=== PATIENT | male | born 1970 | race Caucasian/White ===

== ENCOUNTER 2017-01-19 11:23 | Emergency (ER) | payer OTHER ==
[~2017-01-19] VITALS: Ht 162.6 cm; Wt 71.6 kg
[2017-01-19 11:25] VITALS: O2SAT 95
[2017-01-19 11:29] VITALS: TEMP 37; Ht 162.6 cm; Wt 71.6 kg
[2017-01-19] MEDS ORDERED: ZNTT/150 PO (11:32)
[2017-01-19 12:08] LABS: BASO % 0.1 %; BASO ABS # 0.01 K/uL (0-0.2); COMPLETE YES; EOS % 0.6 %; HEMATOCRIT 45.9 % (42-52); IG% 0.1 %; LYMPH ABS # 1.26 K/uL (1.2-3.4); MEAN CELL VOLUME 91.3 fL (80-100); MEAN CORPUSCULAR HGB CONC 35.1 g/dl (32-36); MEAN PLATELET VOLUME 11.6 fL (7.4-10.4); NEUT % 77.2 %; PLATELET COUNT 202 K/uL (130-400); RED BLOOD COUNT 5.03 M/uL (4.7-6.1)
--- NOTE | 2017-01-19 12:21 | DIAGNOSTIC IMAGING REPORT ---
CHEST ONE VIEW PORTABLE CLINICAL HISTORY: Atypical chest pain COMPARISON STUDY: No previous studies for comparison. FINDINGS: The cardiac and mediastinal contours are normal. There is no evidence of focal pulmonary consolidation. There is no evidence of failure. No pleural effusions are visualized.[ IMPRESSION: No active disease in the chest. Electronically signed by: Reji Calero M.D. 01/19/2017 12:20 PM Dictated Date/Time: 01/19/2017 12:20 PM
[2017-01-19 12:27] LABS: BUN/CREATININE RATIO 17.8 (10-20); CALCIUM 8.7 mg/dl (8.5-10.1); CREATININE 0.75 mg/dl (0.60-1.40); POTASSIUM 4.3 mmol/L (3.5-5.1)
[2017-01-19 13:10] LABS: BENZODIAZEPINE, URINE NEG (NEG); COCAINE,URINE NEG (NEG); PHENCYCLIDINE, URINE NEG (NEG)
--- NOTE | 2017-01-19 13:38 | EMERGENCY ROOM VISIT NOTE ---
History First contact with patient: 11:29 Chief Complaint: CHEST PAIN Stated Complaint: CHEST PAIN Nursing Triage Summary: Pt presents via ALS litter for eval of substernal cp when taking a deep breath, pain started at 0500. Pt states went to the [facility] at the [facility] at 0930. States he is starting to feel better on arrival to the ED. Pt states last night approx 2130 he snorted a "line of white substance." Pt reports hx of heroin use. History of Present Illness The patient is a 46 year old male who presents to the Emergency Room from [facility] with complaints of chest pain that started this morning at 5 AM. Patient describes the pain as midsternal, dull and achy, constant, currently 4/10. Associated symptoms of shortness of breath, sweating, dizziness at onset of pain. He states these symptoms have resolved and his pain is improving since onset. Patient states that last night around 9:30 PM he snorted a "line of white powder." He reports a history of paranoid use and states this tasted similar to heroin, but he did not know what was in the powder. Patient denies any past medical history or family history of heart disease. Denies headache, vision changes, neck pain, back pain, leg pain or swelling, edema, syncope, abdominal pain, nausea/vomiting, diarrhea, constipation, urinary complaints. Review of Systems GENERAL: Denies fevers, chills, malaise, fatigue, unintentional weight changes. HEENT: + Dizziness. Denies visual problems, hearing loss, tinnitus. Denies difficulty swallowing or oral lesions. PULMONARY: + Shortness of breath. Denies cough, sputum production or hemoptysis. CARDIOVASCULAR: + Chest pain. Denies palpitations, syncope, dyspnea on exertion , orthopnea or peripheral edema. GASTROINTESTINAL: Denies diarrhea, constipation, nausea, vomiting, or abdominal pain. GENITOURINARY: Denies dysuria, frequency, urgency or nocturia. NEUROLOGIC: Denies history of epilepsy, CVA, TIA or chronic headaches. MUSCULOSKELETAL: Denies history of joint tenderness/swelling. SKIN: Denies rashes or lesions. PSYCHIATRIC: Denies history of depression or mental illness. ENDOCRINE: Denies history of diabetes, thyroid disorders, abnormal hair growth or sexual dysfunction. Social History Smoking Status: Current Every Day Smoker Current/Historical Medications Scheduled Ranitidine (Zantac), 150 MG PO BID Allergies Coded Allergies: No Known Allergies (Unverified , 01/19/17) Physical Exam Vital Signs Date Time Temp Pulse Resp B/P Pulse Ox O2 Delivery O2 Flow Rate FiO2 01/19/17 15:57 64 16 109/76 97 Room Air 01/19/17 15:03 70 16 103/71 97 Room Air 01/19/17 13:46 72 18 112/65 97 Room Air 01/19/17 13:19 71 01/19/17 12:55 80 18 106/66 97 Room Air 01/19/17 11:32 75 01/19/17 11:29 37.0 83 18 122/79 98 Room Air 01/19/17 11:25 95 Room Air Physical Exam CONSTITUTIONAL: No acute distress. Well appearing and well nourished. Alert and oriented X 4 with normal affect. HEENT: Normocephalic, atraumatic. Pupils equal, round and reactive to light, EOMI. TMs normal. Pharynx normal. NECK: Supple, full active range of motion without discomfort. RESPIRATORY: Clear to auscultation bilaterally with no wheezing, crackles, rhonchi or stridor. Equal expansion bilaterally. CARDIOVASCULAR: Regular rate and rhythm with no murmurs, rubs or gallops. Normal peripheral perfusion. No edema. GASTROINTESTINAL: Soft, nontender, nondistended. Bowel sounds present in all quadrants. MUSCULOSKELETAL: Full range of motion of all joints without discomfort. INTEGUMENTARY: No rash or other significant dermatologic conditions noted. NEUROLOGIC: Cranial nerves II-XII grossly intact. No focal neurologic deficits noted. Medical Decision & Procedures ER Provider Diagnostic Interpretation: CHEST ONE VIEW PORTABLE CLINICAL HISTORY: Atypical chest pain COMPARISON STUDY: No previous studies for comparison. FINDINGS: The cardiac and mediastinal contours are normal. There is no evidence of focal pulmonary consolidation. There is no evidence of failure. No pleural effusions are visualized.[ IMPRESSION: No active disease in the chest. Laboratory Results 01/19/17 11:55 Red Blood Count 5.03, Mean Corpuscular Volume 91.3, Mean Corpuscular Hemoglobin 32.0, Mean Corpuscular Hemoglobin Concent 35.1, Mean Platelet Volume 11.6, Neutrophils (%) (Auto) 77.2, Lymphocytes (%) (Auto) 15.0, Monocytes (%) (Auto) 7.0, Eosinophils (%) (Auto) 0.6, Basophils (%) (Auto) 0.1, Neutrophils # (Auto) 6.48, Lymphocytes # (Auto) 1.26, Monocytes # (Auto) 0.59, Eosinophils # (Auto) 0.05, Basophils # (Auto) 0.01 01/19/17 11:55 Test 01/19/17 11:55 01/19/17 12:21 01/19/17 13:44 White Blood Count 8.40 K/uL (4.8-10.8) Red Blood Count 5.03 M/uL (4.7-6.1) Hemoglobin 16.1 g/dL (14.0-18.0) Hematocrit 45.9 % (42-52) Mean Corpuscular Volume 91.3 fL (80-100) Mean Corpuscular Hemoglobin 32.0 pg (25-34) Mean Corpuscular Hemoglobin Concent 35.1 g/dl (32-36) Platelet Count 202 K/uL (130-400) Mean Platelet Volume 11.6 fL (7.4-10.4) Neutrophils (%) (Auto) 77.2 % Lymphocytes (%) (Auto) 15.0 % Monocytes (%) (Auto) 7.0 % Eosinophils (%) (Auto) 0.6 % Basophils (%) (Auto) 0.1 % Neutrophils # (Auto) 6.48 K/uL (1.4-6.5) Lymphocytes # (Auto) 1.26 K/uL (1.2-3.4) Monocytes # (Auto) 0.59 K/uL (0.11-0.59) Eosinophils # (Auto) 0.05 K/uL (0-0.5) Basophils # (Auto) 0.01 K/uL (0-0.2) RDW Standard Deviation 42.8 fL (36.4-46.3) RDW Coefficient of Variation 12.9 % (11.5-14.5) Immature Granulocyte % (Auto) 0.1 % Immature Granulocyte # (Auto) 0.01 K/uL (0.00-0.02) Anion Gap 2.0 mmol/L (3-11) Est Creatinine Clear Calc Drug Dose 111.7 ml/min Estimated GFR () 127.5 Estimated GFR (Non- 110.0 BUN/Creatinine Ratio 17.8 (10-20) Calcium Level 8.7 mg/dl (8.5-10.1) Total Bilirubin 0.6 mg/dl (0.2-1) Direct Bilirubin 0.1 mg/dl (0-0.2) Aspartate Amino Transf (AST/SGOT) 13 U/L (15-37) Alanine Aminotransferase (ALT/SGPT) 32 U/L (12-78) Alkaline Phosphatase 84 U/L (45-117) Total Protein 7.1 gm/dl (6.4-8.2) Albumin 4.2 gm/dl (3.4-5.0) Lipase 111 U/L (73-393) Urine Opiates Screen NEG (NEG) Urine Methadone, Qualitative NEG (NEG) Urine Barbiturates NEG (NEG) Urine Phencyclidine (PCP) Level NEG (NEG) Ur Amphetamine/Methamphetamine NEG (NEG) MDMA (Ecstasy) Screen NEG (NEG) Urine Benzodiazepines Screen NEG (NEG) Urine Cocaine Metabolite NEG (NEG) Urine Marijuana (THC) NEG (NEG) Bedside Troponin I 0.000 ng/ml (0-0.045) ED Course Patient was evaluated at bedside, history of physical exam performed. Orders were placed at bedside for labs including troponin, urine drug screen, chest x-ray, EKG to evaluate for chest pain. Patient discussed with Dr. Duke, who agrees with my assessment and plan. 1:20 PM - patient reassessed, reports his chest pain is now fully resolved. I discussed his results with him. Awaiting second troponin and EKG. Evaluation of second troponin is also negative. Repeat EKG is normal and unchanged. Attempted to speak with cardiology regarding possible stress test, however they were unavailable to take my call. I spoke with the [facility] guards at bedside, who state the patient has very good close follow-up with the [facility] and that they would be able to set him up with an outpatient stress test in the next few days. I discussed with , who is agreeable to this plan. Medical Decision CC: Patient presenting with complaint of chest pain Interpretation of Labs: Unremarkable, negative troponin 2. Differential Diagnosis: Includes, but not limited to acute coronary syndrome, pulmonary embolism, pneumothorax, pericarditis, myocarditis, endocarditis, anxiety, drug induced, musculoskeletal pain, GERD, costochondritis, pneumonia, among others. Summary: Patient is alert and in no acute distress, well appearing, pleasant on examination. He has 2 presenting guards with him at bedside. Patient's symptoms started several hours after snorting a white powder of unknown substance, although patient states he believes it was heroin. Since arriving to the ED, patient's chest pain has greatly diminished. Labs are unremarkable, 2 negative troponins after greater than 6 hours of chest pain. EKGs are also unremarkable. Chest x-ray unremarkable. Patient's chest pain has fully resolved without any intervention. Patient is low risk for acute coronary syndrome, with risk factors including age of 46 years, heavy every day smoker, and concern for follow-up given his status as a prisoner. Patient is a MOMO 0. I do suspect patient's symptoms were related to the drugs he ingested last night , though this remains unknown, as the urine drug screen is beth-negative. Discussion with the [facility] guards and patient, who state patient would have no problems with follow-up and being scheduled for an outpatient stress test. Patient is comfortable with this plan and is happy to be discharged at this time. Patient reassessed multiple times throughout ED stay, with improvement and eventual resolution of his symptoms. Patient was discussed with and independently examined by the attending physician , who agrees with my assessment and disposition. Impression Primary Impression: Chest pain Additional Impression: Drug abuse Departure Information Dispostion Home / Self-Care Condition GOOD Referrals Ann-Marie RAMIREZ (PCP) Patient Instructions ED Chest Pain Atypical Unkn Cause, ED Drug Abuse General, ED Smoking Cessation, [facility] Additional Instructions Follow-up at the [facility] tomorrow. You should have an exercise stress test ordered in the next 72 hours. Start taking a regular strength aspirin every day to help protect your heart. Stop smoking. You should not use recreational drugs, especially if you do not know what you are ingesting. Please return to the ER for any return or worsening of your symptoms, including chest pain, shortness of breath, palpitations, severe dizziness or passing out, coughing up or vomiting up blood, or any other concerns. Problem Qualifiers Primary Impression: Chest pain Chest pain type: unspecified Qualified Codes: R07.9 - Chest pain, unspecified
[2017-01-19 15:57] VITALS: BP 109/76; PULSE 64; O2SAT 97
== END 2017-01-19 16:13 | disposition home or self-care (01) ==
LOC: EDBD 11:23 → C.EDA 11:26
DX: R07.9 Chest pain, unspecified (principal); F19.10 Other psychoactive substance abuse, uncomplicated; F17.210 Nicotine dependence, cigarettes, uncomplicated; Z79.899 Other long term (current) drug therapy